=== PATIENT | female | born 1935 | race Caucasian/White ===

== ENCOUNTER 2016-06-26 14:16 | Outpatient (CLI) | payer MEDICARE ==
[2013-11-23 08:30] VITALS: BP 148/62
--- NOTE | 2016-06-26 15:05 | Diagnostic Imaging Report ---
LORI RIDLEY [facility] [address] [facility] [address] [address] Report Submission Date: Jun 26, 2016 2:58:34 PM CDT Patient Study Name: ANEL NELSON Date: Jun 26, 2016 2:28:20 PM CDT Modality Type: CR Gender: F Description: UPPER EXTREMITY : 33 Institution: [facility] Physician: LORI RIDLEY Right hand 3 views Clinical history: Pain Technique AP lateral oblique Findings: There is multilevel degenerative arthritis greatest of the pip joints of the digits. Prominent osteophytes are present the level of degenerative arthritis. The hand is osteopenic. There periarticular calcifications at multiple joints. The wrist also shows degenerative arthritis and chondrocalcinosis. No acute fracture line is identified. Flexion deformities are present the 2nd through 5th digits. Impression: Degenerative arthritis Chondrocalcinosis No acute hand pathology Multiple periarticular calcifications throughout the hand in the wrist Electronically signed on Jun 26, 2016 2:58:34 PM CDT by: Declan ZEPEDA
== END 2016-06-26 14:17 ==
LOC: RAD 14:16
PROVIDERS: ATTEND Physician Assistant
DX: M79.641 Pain in right hand (principal)
CPT/HCPCS: 73130

== ENCOUNTER 2016-11-28 09:23 | Emergency (ER) | payer MEDICARE, OTHER ==
[2016-11-28 09:45] VITALS: BP 146/51
[2016-11-28] MEDS ORDERED: CARBAMIDE PEROXIDE OTIC SUSP OT ONE (10:08)
--- NOTE | 2016-11-28 11:46 | ED Physician Documentation ---
General Adult - HISTORIAN Historian: patient - HPI Stated Complaint: pain in left muscle at neck and shoulder, muffled hearing R Chief Complaint: General Adult Onset: days ago Timing: still present Severity: moderate Further Comments: yes (Pt is an 81 yo female with pain in her L shoulder, a rash over her L scapula and a second complaint of muffled hearing on the R.) - ROS CONST: no problems EYES/ENT: other (muffled hearing in R ear) CVS/RESP: none GI/: none MS/SKIN/LYMPH: rash, other (L shoulder soreness) - PAST HX Past History: other (HLD, early Alzheimer's) Allergies/Adverse Reactions: Allergies Allergy/AdvReac Type Severity Reaction Status Date / Time cefaclor [From Ceclor] Allergy Unknown Verified 11/28/16 09:46 codeine Allergy Unknown Verified 11/28/16 09:46 erythromycin base Allergy Unknown Verified 11/28/16 09:46 [Erythromycin Base] ofloxacin [From Floxin] Allergy Unknown Verified 11/28/16 09:46 Penicillins Allergy Unknown Verified 11/28/16 09:46 Sulfa (Sulfonamide Allergy Unknown Verified 11/28/16 09:46 Antibiotics) - SOCIAL HX Smoking History: non-smoker - FAMILY HX Family History: No - VITAL SIGNS Vital Signs: Vital Signs Temp Pulse Resp BP Pulse Ox 98.8 F 74 20 146/51 95 11/28/16 09:23 11/28/16 09:23 11/28/16 09:23 11/28/16 09:23 11/28/16 09:23 - REVIEWED ASSESSMENTS Nursing Assessment Reviewed: Yes Vitals Reviewed: Yes Progress - Progress Progress: Irrigation of R ear canal after Debrox and again after H2O2. Incomplete removal of cerumen after 2 Debrox and 2 H2O2 tx's and multiple irrigations. f/ u ENT Sling for shoulder pain, NSAIDS. expect resolution of faint shoulder rash. ED Results Lab/Radiology - Orders Orders: ED Orders Category Date Time Status Sling to Affected Extremity 1T Care 11/28/16 11:44 Ordered Carbamide Peroxide [Debrox] Med 11/28/16 10:08 Discontinued 225 drop OT .STK-MED ONE General Adult Physical Exam - PHYSICAL EXAM GENERAL APPEARANCE: mild distress EENT: pharynx normal, other (cerumen R ear canal) NECK: normal inspection, supple RESPIRATORY: no resp distress, chest non-tender, breath sounds normal CVS: reg rate & rhythm, heart sounds normal BACK: normal inspection SKIN: other (faint erythema, L upper back, ? bug bite) EXTREMITIES: other (FROM L shoulder; mild discomfort with internal rotation with flexion) NEURO: oriented X3, motor nml, sensation nml Discharge Clincal Impression: L shoulder strain, cerumen impaction R, small rash upper back Referrals: Jean Paul Flores MD [Primary Care Provider] - Condition: Good Decision to Admit: NO Decision Time: 11:47
== END 2016-11-28 12:16 | disposition home or self-care (01) ==
LOC: ED 09:23 → SUPCPDRO 09:23 → ED 12:16
DX: S46.912A Strain of unspecified muscle, fascia and tendon at shoulder and upper arm level, left arm, initial encounter (principal); X58.XXXA Exposure to other specified factors, initial encounter; Y93.9 Activity, unspecified; Y99.9 Unspecified external cause status; H61.21 Impacted cerumen, right ear; R21 Rash and other nonspecific skin eruption
CPT/HCPCS: 99283; S1016

== ENCOUNTER 2016-11-29 16:53 | Outpatient (CLI) | payer MEDICARE ==
[2016-11-28 09:45] VITALS: BP 146/51
--- NOTE | 2016-11-29 19:06 | Diagnostic Imaging Report ---
ROZ GARCIA~ [address] [facility] [address] ~ ~ ~ ~ Report Submission Date: Nov 29, 2016 5:33:15 PM CDT Patient ~ Study Name: ANEL NELSON ~ Date: Nov 29, 2016 4:57:50 PM CDT ~ Modality Type: CR Gender: F ~ Description: SHOULDER : 34 ~ Institution: Physician: ROZ GARCIA ~ ~ ~ ~ Examination: Plain film shoulder History: Discomfort Comparison exams: None provided Findings: 2 views of the shoulder demonstrate normal cortical margins.~ No evidence for fracture or dislocation. Acromial clavicular joint degenerative changes. Large ossific spur involving the medial aspect of the humeral head. No soft tissue abnormality Impression: Acromioclavicular joint and humeral head degenerative changes. No fracture. ~ Electronically signed on Nov 29, 2016 5:33:15 PM CDT by: Josue ZEPEDA
== END 2016-11-29 16:54 ==
LOC: RAD 16:53
PROVIDERS: ATTEND Family Medicine
DX: M25.512 Pain in left shoulder (principal)
CPT/HCPCS: 73030

== ENCOUNTER 2017-06-04 15:21 | Outpatient (CLI) | payer MEDICARE, BC ==
--- NOTE | 2017-06-09 10:17 | OP Clinic Progress Note ---
REASON FOR VISIT: Nayeli is seen with a history of a cerumen impaction. This does not happen very frequently with her, maybe about 5 years ago they had been cleaned out. Both ear canals have at least a moderately obstructive quantity of cerumen, more in the right than in the left. Under the microscope here in the clinic, that was debrided and cleaned. The eardrum itself is normal. Skin of the ear canal is somewhat dry. PLAN: The patient may return on a p.r.n. basis, otherwise, return to the care of Dr. Jasso. cc: Dr. Juan Jose ZEPEDA
== END 2017-06-04 15:22 ==
LOC: ENT 15:21
PROVIDERS: ATTEND Otolaryngology
DX: H61.23 Impacted cerumen, bilateral (principal)
CPT/HCPCS: 69210; G0463

== ENCOUNTER 2017-09-10 14:05 | Outpatient (CLI) | payer MEDICARE, OTHER ==
[2017-09-10 14:58] LABS: APPEARANCE,URINE SLIGHTLY CLOUDY (CLEAR); COLOR,URINE YELLOW (YELLOW); OCCULT BLOOD,URINE NEGATIVE (NEGATIVE); PH URINE 5.5 (5.0 - 8.0); UROBILINOGEN URINE 0.2 Eu (0.2-1.0)
--- NOTE | 2017-09-10 17:44 | Diagnostic Imaging Report ---
ROZ GARCIA [facility] [address] Counts Include 234 Beds At [facility] [address] [address] Report Submission Date: Sep 10, 2017 2:48:31 PM CDT Patient Study Name: ANEL NELSON Date: Sep 10, 2017 2:17:52 PM CDT Modality Type: DX Gender: F Description: SPINE : 33 Institution: [facility] Physician: ROZ GARCIA Examination: Plain film thoracic spine History: T-SPINE, MID BACK PAIN AFTER FALL/SLIDING OUT OF BED ABOUT A MONTH AGO (Hx) Findings: 3 views of the thoracic spine demonstrates osteopenia. Osteophyte formation. Mild mid thoracic vertebral body wedging. S-shaped curvature. Lumbar fixation hardware. No prevertebral abnormality. Impression: Extensive degenerative changes. Midthoracic vertebral body wedging - chronicity indeterminate without/exams. Electronically signed on Sep 10, 2017 2:48:31 PM CDT by: Josue ZEPEDA
--- NOTE | 2017-09-10 17:45 | Diagnostic Imaging Report ---
ROZ GARCIA [facility] [address] [facility] [address] [address] Report Submission Date: Sep 10, 2017 2:49:39 PM CDT Patient Study Name: ANEL NELSON Date: Sep 10, 2017 2:16:22 PM CDT Modality Type: DX Gender: F Description: SPINE : 33 Institution: [facility] Physician: ROZ GARCIA Examination: Plain film lumbar spine History: L-SPINE, LOW BACK PAIN AFTER FALL/SLIDING OUT OF BED ABOUT A MONTH AGO (Hx) Findings: 3 views of the lumbar spine demonstrates osteopenia. Extensive fixation hardware in place. Right hip prosthesis. Generalized osteopenia. No vertebral body anterior compression abnormality. Impression: Osteopenia, degenerative disease, and extensive surgical changes. No overt compression deformity Electronically signed on Sep 10, 2017 2:49:39 PM CDT by: Josue ZEPEDA
== END 2017-09-10 14:06 ==
LOC: LAB 14:05
PROVIDERS: ATTEND Family Medicine
DX: M54.6 Pain in thoracic spine (principal); M54.5 Low back pain; R35.0 Frequency of micturition
CPT/HCPCS: 72072; 72100; 81002

== ENCOUNTER 2017-12-31 16:27 | Outpatient (CLI) | payer MEDICARE ==
[2017-12-31 23:26] LABS: BASO % 0.4 % (0.0-1.5); EOS % 3.1 % (0.0-6.8); LYMPH ABS # 2.29 thou/uL (0.60-4.00); MCH. 32.5 pg (28.0-34.0); MCV 97.9 fL (80.0-100.0); PLATELET COUNT 465 thou/uL (130-400)
== END 2017-12-31 16:30 ==
LOC: LAB 16:27
PROVIDERS: ATTEND Family Medicine
DX: K92.2 Gastrointestinal hemorrhage, unspecified (principal)
CPT/HCPCS: 36415; 85025

== ENCOUNTER 2019-03-03 17:03 | Emergency (ER) | payer MEDICARE, OTHER ==
--- NOTE | 2019-03-03 17:12 | ED Physician Documentation ---
Fall - HISTORIAN Historian: patient - HPI Stated Complaint: pain after fall multiple sites Chief Complaint: Multiple Trauma Onset: just prior to arrival Where: home Context: tripped r: moderate Associated Symptoms:: no loss of consciousness Location of Pain/Injury: head, lower back, L shoulder, hip. denies: neck, face, chest, abdomen, upper back, mid back, R shoulder, upper extremity, lower extremity Injury to Right Extremity: none Injury to Left Extremity: shoulder, arm, elbow, forearm, wrist, hand, hip Further Comments: yes (she says she "scooted" but the report from [place] she fell . Does not appear she had any LOC but she is not aware. No oral blood thinners) - ROS CONST: no problems NEURO: denies: dizziness MS/SKIN/LYMPH: back pain. denies: weakness, numbness, neck pain, leg swelling EYES/ENT: none CVS/RESP: none GI/: denies: problems urinating - PAST HX Past History: cardiac disease - SOCIAL HX Smoking History: non-smoker Alcohol Use: none Drug Use: none - FAMILY HX Family History: none - VITAL SIGNS Vital Signs: Vital Signs Temp Pulse Resp BP Pulse Ox 146/51 11/28/16 09:23 - REVIEWED ASSESSMENTS Nursing Assessment Reviewed: No Vitals Reviewed: No <Mary Jane Murphy - Last Filed: 03/03/19 18:52> - VITAL SIGNS Vital Signs: Vital Signs Temp Pulse Resp BP Pulse Ox 98.0 F 83 20 167/71 99 03/03/19 17:03 03/03/19 17:03 03/03/19 17:03 03/03/19 17:03 03/03/19 17:03 <Vivienne Lambert - Last Filed: 03/03/19 20:19> - PAST HX Allergies/Adverse Reactions: Allergies Allergy/AdvReac Type Severity Reaction Status Date / Time cefaclor [From Ceclor] Allergy Unknown Verified 03/03/19 17:09 codeine Allergy Unknown Verified 03/03/19 17:09 erythromycin base Allergy Unknown Verified 03/03/19 17:09 [Erythromycin Base] ofloxacin [From Floxin] Allergy Unknown Verified 03/03/19 17:09 Penicillins Allergy Unknown Verified 03/03/19 17:09 Sulfa (Sulfonamide Allergy Unknown Verified 03/03/19 17:09 Antibiotics) Home Medications: Ambulatory Orders Medication Instructions Recorded LevoFLOXacin [Levaquin] 500 mg PO DAILY 03/03/19 Mirabegron [Myrbetriq] 25 mg PO DAILY 03/03/19 Naproxen Sodium [All Day Relief] 220 mg PO BID 03/03/19 Progress - Progress Progress: 1853: report and care turned over to L[employer] DG <Mary Jane Murphy - Last Filed: 03/03/19 18:52> ED Results Lab/Radiology - Lab Results Lab Results: Lab Results 03/03/19 17:35 Sodium 142 mmol/L mmol/L (137-145) Potassium 3.5 mmol/L mmol/L (3.5-5.1) Chloride 106 mmol/L mmol/L (98-107) Carbon Dioxide 25 mmol/L mmol/L (22-30) Anion Gap 14.5 BUN 21 mg/dL H mg/dL (7-17) Creatinine 0.85 mg/dL mg/dL (0.52-1.04) Est GFR ( Amer) > 60 (60 - ) Est GFR (Non-Af Amer) > 60 (60 - ) Glucose 111 mg/dL H mg/dL (74-106) Calcium 10.1 mg/dL mg/dL (8.4-10.2) Total Bilirubin 0.4 mg/dL mg/dL (0.2-1.3) AST 41 U/L U/L (15-46) ALT 12 U/L U/L (0-35) Alkaline Phosphatase 104 U/L U/L (38-126) NT-Pro-B Natriuret Pep 293.6 pg/mL pg/mL (15.0-450.0) Total Protein 8.3 g/dL H g/dL (6.3-8.2) Albumin 4.2 g/dL g/dL (3.5-5.0) - Radiology Radiology Impressions: CT head without contrast History: Fall, head injury Technique: Images through the brain were obtained without contrast. Findings: No mass, midline shift, hydrocephalus or hemorrhage is present. The ventricles and cortical sulci are enlarged, consistent with atrophy. Lucency in the periventricular white matter indicates microvascular ischemic change. Chronic bilateral lacunar infarcts are noted. There is encephalomalacia in the cerebellum, consistent with chronic infarct. 26 mm meningioma is noted minimally left posterior parietal region. No extra-axial fluid collection is identified. Impression: Chronic and age-related changes. No acute intracranial process. Electronically signed on Mar 03, 2019 7:01:22 PM PARKING ENFORCER by: Tone Osborne Chest, aP portable History: Fall Findings: No infiltrate, effusion or pneumothorax is present. Heart size, mediastinum and pulmonary vascularity are normal. Degenerative changes are noted in the shoulders. Impression: No active pulmonary disease. Electronically signed on Mar 03, 2019 7:12:11 PM PARKING ENFORCER by: Tone Osborne Lumbar spine, AP and lateral History: Fall, back pain Finding: Rods and transpedicular screws fuse L1 through S1. Right S1 transpe dicular screws fractured. Laminectomies have been performed. Lumbar spine is demineralized. Advanced degenerative changes are present. There is no gross evidence of acute fracture. Impression: Postoperative and degenerative changes. Electronically signed on Mar 03, 2019 7:13:55 PM PARKING ENFORCER by: Tone Osborne Left forearm, 2 views History: Fall Findings: There is no acute fracture, dislocation or abnormal bone destruction. Heterotopic ossification is noted in the anterior forearm. Degenerative changes are noted at the elbow and wrist. Impression: No acute abnormality. Electronically signed on Mar 03, 2019 7:15:14 PM PARKING ENFORCER by: Tone Osborne Left hip, 2 views History: Fall Finding: There is no fracture, dislocation or abnormal bone production or destruction. Mild degenerative change is present. Impression: No acute osseous abnormality. Electronically signed on Mar 03, 2019 7:17:12 PM PARKING ENFORCER by: Tone Osborne Left humerus, 2 views History: Fall Findings: No fracture, dislocation or abnormal bone production or destruction is identified. Degenerative change is noted at the elbow and shoulder. Impression: No acute abnormality. Electronically signed on Mar 03, 2019 7:18:07 PM PARKING ENFORCER by: Tone Osborne Left shoulder, 3 views History: Shoulder pain Finding: There is no fracture, dislocation or abnormal bone destruction. Advanced degenerative changes are noted at the glenohumeral joint. Mild degenerative changes are noted at the acromioclavicular joint. Impression: Advanced osteoarthritis. Electronically signed on Mar 03, 2019 7:19:10 PM PARKING ENFORCER by: Tone Osborne - Orders Orders: ED Orders Category Date Time Status IV Started NOW Care 03/03/19 17:34 Active CHEST 1VIEW [RAD] Stat Exams 03/03/[address] BRAIN W/O CONTRAST Stat Exams 03/03/19 Completed FOREARM XR [FOREARM 2 VIEWS] [RAD] Stat Exams 03/03/19 Ordered HUMERUS 2 VIEWS OR MORE [RAD] Stat Exams 03/03/19 Ordered LT HIP 2VIEW COMPLETE [RAD] Stat Exams 03/03/19 Ordered LUMBAR SPINE XR 2 OR 3 VIEWS [L SPINE 2 OR 3 VIEWS] [ Exams 03/03/19 Ordered RAD] Stat SHOULDER 2 VIEWS OR MORE [RAD] Stat Exams 03/03/19 Ordered CBC/PLATELET/DIFF Stat Lab 03/03/19 17:35 Received CMP Stat Lab 03/03/19 17:35 Completed NT BNP Stat Lab 03/03/19 17:35 Completed Ipratropium/Albuterol Sulfate [Duoneb] Med 03/03/19 17:34 Discontinued 3 ml NEB NOW ONE <Vivienne Lambert - Last Filed: 03/03/19 20:19> Fall Physical Exam - Physical Exam General Appearance: no acute distress, alert Head: non-tender, trauma (2 cm red raised hematoma ) Neck: non-tender, painless ROM Eye: JAIME ENT: nml external inspection Resp/CVS: chest non-tender, no resp. distress, heart sounds nml, wheezes, rhonc hi. No: rib tenderness Abdomen: soft Skin: color nml, no rash Back: normal inspection, vertebral tenderness (lumbar ) Extremities: other (pedal edema bilateral lower legs 2+) Joint: painful (left hip / left shoulder and elbow as well as hand wrist ) - [place] Coma Score Eyes Open: Spontaneous Speech: Confused Motor: Obeys Commands <Mary Jane Murphy - Last Filed: 03/03/19 18:52> - Physical Exam Neuro: oriented x3, sensation nml, motor nml, mood/affect nml, slat basket maker helper nml, slat basket maker helper symmetrical <Vivienne Lambert - Last Filed: 03/03/19 20:19> Discharge <Mary Jane Murphy - Last Filed: 03/03/19 18:52> Comments: Called [facility]; will continue with Levaquin and added duonebs (sent 4 Duonebs with patient and script per [facility] request) Decision to Admit: NO Decision Time: 20:18 <Vivienne Lambert - Last Filed: 03/03/19 20:19> Clincal Impression: Head contusion, Contusion of left arm, Contusion of left hip, Lumbar pain, Wheezing Referrals: Juan Jose Jasso MD [Primary Care Provider] - 2 Days Additional Instructions: Head CT negative, CXR negative Please continue with antibiotic Duonebs every 4 hours until noon tomorrow and then every 4 hours as needed for SOA/Wheezing. Encourage fluid intake Follow up with PCP Condition: Good Disposition: 01 HOME, SELF-CARE
[2019-03-03] MEDS ORDERED: IPRATROPIUM/ALBUTEROL SULFATE 3 ML AMPUL.NEB NEB ONE ×2 (17:34→19:51)
[2019-03-03 18:03] LABS: eGFR (Non-African) > 60
--- NOTE | 2019-03-03 19:05 | Diagnostic Imaging Report ---
PATIENT MR#: [id number] PATIENT PATIENT NAME: ANEL NELSON DATE OF : 1935 REFERRING PHYSICIAN: Mary Jane Murphy EXAM DATE: 03/03/2019 ACCESSION NUMBER: [id number] EXAM DESCRIPTION: CT BRAIN W/O CONTRAST CT head without contrast History: Fall, head injury Technique: Images through the brain were obtained without contrast. Findings: No mass, midline shift, hydrocephalus or hemorrhage is present. The ventricles and cortical sulci are enlarged, consistent with atrophy. Lucency in the periventricular white matter indicates microvascula r ischemic change. Chronic bilateral lacunar infarcts are noted. There is encephalomalacia in the cerebellum, consistent with chronic infarct. 26 mm meningioma is noted minimally left posterior parietal region. No extra-axial fluid col lection is identified. Impression: Chronic and age-related changes. No acute intracranial process. Read by: Dr. Tone Osborne Transcribed by: Transcribed Date: Electronically signed by: Dr. Tone Osborne Date signed: 03/03/2019 7:05:01 PM
--- NOTE | 2019-03-03 19:16 | Diagnostic Imaging Report ---
PATIENT MR#: [id number] PATIENT PATIENT NAME: ANEL NELSON DATE OF : 1935 REFERRING PHYSICIAN: Mary Jane Murphy EXAM DATE: 03/03/2019 ACCESSION NUMBER: [id number] EXAM DESCRIPTION: CHEST 1VIEW Chest, aP portable History: Fall Findings: No infiltrate, effusion or pneumothorax is present. Heart size, mediastinum and pulmonary v ascularity are normal. Degenerative changes are noted in the shoulders. Impression: No active pulmonary disease. Read by: Dr. Tone Osborne Transcribed by: Transcribed Date: Electronically signed by: Dr. Tone Osborne Date signed: 03/03/2019 7:16:00 PM
--- NOTE | 2019-03-03 19:17 | Diagnostic Imaging Report ---
PATIENT MR#: [id number] PATIENT PATIENT NAME: ANEL NELSON DATE OF : 1935 REFERRING PHYSICIAN: Vivienne Lambert EXAM DATE: 03/03/2019 ACCESSION NUMBER: [id number] EXAM DESCRIPTION: L SPINE 2 OR 3 VIEWS Lumbar spine, AP and lateral History: Fall, back pain Finding: Rods and transpedicular screws fuse L1 through S1. Right S1 transpedicular screws fractured. Laminectomies have been performed. Lumbar spine is demineralized. Advanced degenerative changes are present. There is no gross evidence of acute fracture. Impression: Postoperative and degenerative changes. Read by: Dr. Tone Osborne Transcribed by: Transcribed Date: Electronically signed by: Dr. Tone Osborne Date signed: 03/03/2019 7:17:00 PM
--- NOTE | 2019-03-03 19:19 | Diagnostic Imaging Report ---
PATIENT MR#: [id number] PATIENT PATIENT NAME: ANEL NELSON DATE OF : 1935 REFERRING PHYSICIAN: Vivienne Lambert EXAM DATE: 03/03/2019 ACCESSION NUMBER: [id number] EXAM DESCRIPTION: FOREARM 2 VIEWS Left forearm, 2 views History: Fall Findings: There is no acute fracture, dislocation or abnormal bone destruction. Heterotopic ossificat ion is noted in the anterior forearm. Degenerative changes are noted at the elbow and wrist. Impression: No acute abnormality. Read by: Dr. Tone Osborne Transcribed by: Transcribed Date: Electronically signed by: Dr. Tone Osborne Date signed: 03/03/2019 7:19:00 PM
--- NOTE | 2019-03-03 19:21 | Diagnostic Imaging Report ---
PATIENT MR#: [id number] PATIENT PATIENT NAME: ANEL NELSON DATE OF : 1935 REFERRING PHYSICIAN: Vivienne Lambert EXAM DATE: 03/03/2019 ACCESSION NUMBER: [id number] EXAM DESCRIPTION: LT HIP 2VIEW COMPLETE Left hip, 2 views History: Fall Finding: There is no fracture, dislocation or abnormal bone production or destruction. Mild degenerat chano change is present. Impression: No acute osseous abnormality. Read by: Dr. Tone Osborne Transcribed by: Transcribed Date: Electronically signed by: Dr. Tone Osborne Date signed: 03/03/2019 7:21:00 PM
--- NOTE | 2019-03-03 19:22 | Diagnostic Imaging Report ---
PATIENT MR#: [id number] PATIENT PATIENT NAME: ANEL NELSON DATE OF : 1935 REFERRING PHYSICIAN: Vivienne Lambert EXAM DATE: 03/03/2019 ACCESSION NUMBER: [id number] EXAM DESCRIPTION: HUMERUS 2 VIEWS OR MORE Left humerus, 2 views History: Fall Findings: No fracture, dislocation or abnormal bone production or destruction is identified. Degenera tive change is noted at the elbow and shoulder. Impression: No acute abnormality. Read by: Dr. Tone Osborne Transcribed by: Transcribed Date: Electronically signed by: Dr. Tone Osborne Date signed: 03/03/2019 7:22:00 PM
--- NOTE | 2019-03-03 19:23 | Diagnostic Imaging Report ---
PATIENT MR#: [id number] PATIENT PATIENT NAME: ANEL NELSON DATE OF : 1935 REFERRING PHYSICIAN: Vivienne Lambert EXAM DATE: 03/03/2019 ACCESSION NUMBER: [id number] EXAM DESCRIPTION: SHOULDER 2 VIEWS OR MORE Left shoulder, 3 views History: Shoulder pain Finding: There is no fracture, dislocation or abnormal bone destruction. Advanced degenerative change s are noted at the glenohumeral joint. Mild degenerative changes are noted at the acromioclavicular joint. Impression: Advanced osteoarthritis. Read by: Dr. Tone Osborne Transcribed by: Transcribed Date: Electronically signed by: Dr. Tone Osborne Date signed: 03/03/2019 7:23:00 PM
[2019-03-03 20:31] VITALS: BP 178/78
[2019-03-04 11:51] LABS: BASOPHILS % 0.5 % (0.0-1.5); NEUTROPHILS # 6.1 # k/uL (1.4-7.7)
== END 2019-03-03 20:10 | disposition home or self-care (01) ==
LOC: ED 17:03
DX: S00.93XA Contusion of unspecified part of head, initial encounter (principal); S70.02XA Contusion of left hip, initial encounter; S40.022A Contusion of left upper arm, initial encounter; R06.2 Wheezing; W01.0XXA Fall on same level from slipping, tripping and stumbling without subsequent striking against object, initial encounter; Y92.009 Unspecified place in unspecified non-institutional (private) residence as the place of occurrence of the external cause
CPT/HCPCS: 70450; 71045; 72100; 73030; 73060; 73090; 80053; 83880; 85025; 94640; 99283; 99284; S1016